=== PATIENT | female | born 1980 | race Caucasian/White ===

== ENCOUNTER 2018-05-01 22:44 | Inpatient (IN) | payer MEDICAID ==
[~2018-05-01] VITALS: Ht 157.5 cm; Wt 79.4 kg
[~2018-05-01 22:44] MED LIST: METHYLERGONOVINE MALEATE 0.2 MG/ML ONE
[2018-05-02] MEDS ORDERED: NALOXONE HCL 0.4 MG/ML 1ML VIAL IM PRN (00:30)
[2018-05-02] MEDS ORDERED: MISOPROSTOL 100MCG TABLET VG SCH (00:30)
[2018-05-02] MEDS ORDERED: LIDOCAINE HCL 1% 20ML VIAL (Pyxis) INJ INFIL SCH (00:30)
[2018-05-02] MEDS ORDERED: BUTORPHANOL TARTRATE 2 MG/ML VIAL IV PRN (00:30)
[2018-05-02] MEDS ORDERED: METHYLERGONOVINE MALEATE 0.2 MG/ML IM PRN (00:30)
[2018-05-02] MEDS ORDERED: CARBOPROST TROMETHAMINE 250 MCG/ML AMPUL IM PRN (00:30)
[2018-05-02] MEDS ORDERED: PNV1TABL50 MT (00:32)
[2018-05-02] MEDS ORDERED: CHOL100046 MT (00:32)
[2018-05-02 00:51] LABS: CLARITY URINE CLEAR (CLEAR); COLOR URINE ORANGE (YELLOW); KETONES URINE NEGATIVE (NEGATIVE); LEUKOCYTE ESTERASE URINE NEGATIVE (NEGATIVE); NITRITE URINE NEGATIVE (NEGATIVE); OCCULT BLOOD URINE 3+ (NEGATIVE); PROTEIN URINE TRACE (NEGATIVE); SPECIFIC GRAVITY URINE 1.013 (1.005-1.030); UROBILINOGEN URINE 0.2 E.U./dL (0.2-1.0)
[2018-05-02 00:52] LABS: PARTIAL THROMBOPLASTIN TIME 27.8 sec (23.4-31.0); PROTHROMBIN TIME 9.6 sec (9.1-11.1)
[2018-05-02 01:09] LABS: HEMATOCRIT. 37.3 % (36.0-48.0); HEMOGLOBIN. 12.6 g/dL (12.0-16.0); MEAN CORPUSCULAR HEMOGLOBIN 30.4 pg (28.0-32.0); MEAN CORPUSCULAR VOLUME 90.2 fL (81.0-99.0); MEAN PLATELET VOLUME 11.4 fl (7.4-10.4); PLATELET 222 x1000/uL (130-400); RED BLOOD CELL COUNT 4.14 mill/uL (4.2-5.4); RED CELL DISTRIBUTION WIDTH 14.9 % (11.6-14.6)
[2018-05-02 01:12] LABS: *AMPHETAMINES SCREEN URINE NEGATIVE (NEGATIVE); *BARBITURATES SCREEN URINE NEGATIVE (NEGATIVE)
[2018-05-02 01:13] LABS: *BENZODIAZEPINES SCREEN URINE NEGATIVE (NEGATIVE); *COCAINE SCREEN URINE NEGATIVE (NEGATIVE); CANNABINOID URINE SCREEN NEGATIVE (NEGATIVE); METHADONE URINE SCREEN NEGATIVE (NEGATIVE); OPIATES URINE SCREEN NEGATIVE (NEGATIVE); PHENCYCLIDINE URINE SCREEN NEGATIVE (NEGATIVE)
[2018-05-02 02:30] LABS: ATYPICAL LYMPHOCYTES 1
[2018-05-02 02:31] LABS: PLATELET ESTIMATE NORMAL
[2018-05-02] MEDS: LACTATED RINGERS 1,000 ML IV SCH ×4 (02:39→18:45)
[2018-05-02] MEDS: DEXT 5%/LR + PITOCIN 20UNITS/L 1,000 ML IV SCH (02:40)
[2018-05-02] MEDS ORDERED: ACETAMINOPHEN 500MG TABLET PO PRN (05:15)
[2018-05-02] MEDS ORDERED: FENTANYL CITRATE/PF 50MCG/ML 2ML VIAL ONE (05:25)
[2018-05-02] MEDS ORDERED: BUPIVACAINE HCL/NS/PF EPIDURAL 100 ML EP ONE (05:26)
[2018-05-02] MEDS ORDERED: BUPIVACAINE HCL/PF 0.25% (2.5MG/ML) 10ML ONE (05:26)
[2018-05-02 07:20] LABS: HEPATITIS B SURFACE ANTIGEN NEGATIVE; RUBELLA IGG 11.8 IU/mL (4.99-10)
[2018-05-02] MEDS ORDERED: SODIUM CHLORIDE 0.9% 1,000 ML IV ONE (09:00)
[2018-05-02] MEDS ORDERED: CEFAZOLIN SODIUM 1000MG/VIAL ONE (09:50)
[2018-05-02] MEDS ORDERED: OXYTOCIN 10 UNITS/ML 1ML ONE (09:50)
[2018-05-02] MEDS ORDERED: SODIUM BICARBONATE 4% (2.4MEQ) 5ML VIAL IV ONE (09:52)
[2018-05-02] MEDS ORDERED: LIDOCAINE HCL 2%/EPINEPHRINE/PF 10 ML VIAL ONE (09:52)
[2018-05-02] MEDS ORDERED: DEXT 5%/LR + PITOCIN 20UNITS/L 1,000 ML IV SCH (10:09)
[2018-05-02] MEDS ORDERED: HYDROMORPHONE HCL/PF 2MG/ML CPJ IM PRN (10:15)
[2018-05-02] MEDS ORDERED: BISACODYL 10MG SUPP PR PRN (10:15)
[2018-05-02] MEDS ORDERED: IBUPROFEN 400MG TABLET PO PRN (10:15)
[2018-05-02] MEDS ORDERED: ONDANSETRON HCL 4MG/2ML INJ IV PRN (10:45)
[2018-05-02] MEDS ORDERED: MORPHINE SULFATE 2 MG/ML CPJ (NOT FOR IM USE) IV PRN (10:45)
[2018-05-02] MEDS ORDERED: MEPERIDINE HCL/PF 25MG/ML CPJ IV PRN (10:45)
[2018-05-02] MEDS ORDERED: ONDANSETRON HCL 4MG/2ML INJ ONE (10:53)
[2018-05-02 13:00] VITALS: BP 120/69
[2018-05-02 13:30] VITALS: BP 105/68
[2018-05-02 15:30] VITALS: BP 96/66
[2018-05-02 18:26] VITALS: BP 112/55
[2018-05-02 20:00] VITALS: BP 104/60
[2018-05-02] MEDS: IBUPROFEN 800MG TABLET PO PRN (20:11)
[2018-05-03 00:01] VITALS: BP 98/63
[2018-05-03] MEDS: DEXT 5%/LR + PITOCIN 20UNITS/L 1,000 ML IV SCH (02:55)
[2018-05-03 04:00] VITALS: BP 98/53
[2018-05-03] MEDS: IBUPROFEN 800MG TABLET PO PRN ×3 (06:02→23:03)
[2018-05-03 06:59] LABS: BASOPHILS % 0.3 % (0.0-2.0); EOSINOPHILS % 0.5 % (0.0-5.0); HEMOGLOBIN. 9.2 g/dL (12.0-16.0); LYMPHOCYTES % 8.7 % (20.0-50.0); MEAN CORPUSCULAR HEMOGLOBIN 31.2 pg (28.0-32.0); MEAN CORPUSCULAR VOLUME 91.3 fL (81.0-99.0); MEAN PLATELET VOLUME 10.1 fl (7.4-10.4); MONOCYTES % 6.7 % (2.0-8.0); NEUTROPHILS % 83.8 % (40.0-76.0); PLATELET 198 x1000/uL (130-400); RED BLOOD CELL COUNT 2.95 mill/uL (4.2-5.4); RED CELL DISTRIBUTION WIDTH 15.1 % (11.6-14.6)
[2018-05-03 07:32] VITALS: BP 94/58
[2018-05-03] MEDS: ACETAMINOPHEN WITH CODEINE 300/30MG TABLET PO PRN (11:04)
[2018-05-03 15:42] VITALS: BP 103/60
[2018-05-03 20:00] VITALS: BP 104/59
[2018-05-04] VITALS: BP 101/60
[2018-05-04 05:00] VITALS: BP 98/60
[2018-05-04 08:00] VITALS: BP 103/67
[2018-05-04] MEDS: IBUPROFEN 800MG TABLET PO PRN (14:51)
[2018-05-04 16:37] VITALS: BP 116/69
[2018-05-04 20:00] VITALS: BP 118/68
[2018-05-04] MEDS: ACETAMINOPHEN WITH CODEINE 300/30MG TABLET PO PRN (22:03)
[2018-05-05] VITALS: BP 116/68
[2018-05-05 05:29] VITALS: BP 99/60
[2018-05-05 08:00] VITALS: BP 97/57
[2018-05-05] MEDS: ACETAMINOPHEN WITH CODEINE 300/30MG TABLET PO PRN (12:05)
== END 2018-05-05 15:30 | disposition home or self-care (01) | DRG 540 ==
LOC: L&D 22:44 → OBSVTOIN 22:44 → 7EST PP/OB 05-02 13:18
PROVIDERS: ADMIT Obstetrics & Gynecology; ATTEND Obstetrics & Gynecology
PROC: 10D00Z1 Extraction of Products of Conception, Low, Open Approach (ICD-10-PCS; principal; 2018-05-02 09:23)
DX: O76 Abnormality in fetal heart rate and rhythm complicating labor and delivery (principal); O41.03X0 Oligohydramnios, third trimester, not applicable or unspecified; O77.0 Labor and delivery complicated by meconium in amniotic fluid; D64.9 Anemia, unspecified; Z37.0 Single live birth; Z3A.40 40 weeks gestation of pregnancy; O90.81 Anemia of the puerperium; Z83.3 Family history of diabetes mellitus
CPT/HCPCS: 36415; 80305; 81003; 85025; 85610; 85730; 86592; 86703; 86762; 86850; 86900; 87340; 88307; G0378; J0690; J1170; J2175; J2210; J2405; J2590; J3010; J3490; J7040; J7120; A4315

== ENCOUNTER 2018-11-25 22:19 | Emergency (ER) | payer MEDICAID ==
[~2018-11-25] VITALS: Ht 157.5 cm; Wt 79.0 kg
[~2018-11-25 22:19] MED LIST changes: -METHYLERGONOVINE MALEATE 0.2 MG/ML ONE; +PNV1TABL50 MT
[2018-11-25 23:01] VITALS: BP 148/86
== END 2018-11-26 01:47 | disposition left against medical advice (07) ==
LOC: ER 22:19
DX: S71.112A Laceration without foreign body, left thigh, initial encounter (principal); Z53.21 Procedure and treatment not carried out due to patient leaving prior to being seen by health care provider; W45.8XXA Other foreign body or object entering through skin, initial encounter; Y93.89 Activity, other specified; Y92.89 Other specified places as the place of occurrence of the external cause; Y99.8 Other external cause status

== ENCOUNTER 2018-11-26 11:36 | Emergency (ER) | payer MEDICAID ==
[~2018-11-26] VITALS: Ht 157.5 cm; Wt 77.0 kg
[2018-11-26] MEDS ORDERED: BACITRACIN ZINC OINT UDPKT TOP ONE (13:15)
[2018-11-26] MEDS ORDERED: LIDOCAINE 1%/EPI 1:100,000 10 ML VIAL IJ ONE (13:15)
[2018-11-26] MEDS ORDERED: IBUPROFEN 600MG TABLET PO ONE (15:00)
[2018-11-26 15:08] VITALS: BP 120/71
== END 2018-11-26 15:11 | disposition home or self-care (01) ==
LOC: ER 11:36
DX: S71.112A Laceration without foreign body, left thigh, initial encounter (principal); F17.200 Nicotine dependence, unspecified, uncomplicated; Z98.890 Other specified postprocedural states; Z79.899 Other long term (current) drug therapy; W26.8XXA Contact with other sharp object(s), not elsewhere classified, initial encounter; Y93.89 Activity, other specified; Y92.89 Other specified places as the place of occurrence of the external cause; Y99.8 Other external cause status
CPT/HCPCS: 12002; 73552; 81025; 99283; A4217; J3490; Z7610

== ENCOUNTER 2018-11-29 12:31 | Emergency (ER) | payer MEDICAID ==
[~2018-11-29] VITALS: Ht 157.5 cm; Wt 73.0 kg
[2018-11-29 13:59] VITALS: BP 111/83
== END 2018-11-29 14:01 | disposition home or self-care (01) ==
LOC: ER 12:31
DX: S71.112D Laceration without foreign body, left thigh, subsequent encounter (principal); Z98.890 Other specified postprocedural states; Z79.899 Other long term (current) drug therapy; X58.XXXD Exposure to other specified factors, subsequent encounter
CPT/HCPCS: 99281